=== PATIENT | male | born 1960 | race Caucasian/White ===

== ENCOUNTER 2018-09-11 14:23 | Inpatient (IN) | payer OTHER ==
[2018-09-11] MEDS: SOD CHLORIDE 0.9% 1,000 ML IV (14:54)
[2018-09-11] MEDS: morphine 4 MG/ML VIAL IV (14:54)
[2018-09-11] MEDS: ONDANSETRON 4 MG INJ IV (14:54)
[2018-09-11 14:55] LABS: ADD MAN DIFF? NO
[2018-09-11 15:00] LABS: WHITE BLOOD COUNT 9.2 10^3/ul (4.8-10.8)
[2018-09-11 15:00] LABS: BASOPHILS % 0.2 % (0.0-2.0); HEMATOCRIT 43.8 % (42.0-52.0); HEMOGLOBIN 15.3 g/dl (14.0-18.0); LYMPHOCYTES # 0.8 10^3/ul (0.8-2.9); LYMPHOCYTES % 8.5 % (15.0-51.0); MEAN CORPUSCULAR HEMOGLOBIN 29.5 pg (29.0-33.0); MEAN CORPUSCULAR HGB CONC 34.9 g/dl (32.0-37.0); MEAN CORPUSCULAR VOLUME 84.4 fl (82.0-101.0); MEAN PLATELET VOLUME 9.1 fl (7.4-10.4); MONOCYTE # 0.6 10^3/ul (0.3-0.9); MONOCYTES % 6.5 % (0.0-11.0); NEUTROPHIL # 7.8 10^3/ul (1.6-7.5); NEUTROPHILS % 84.3 % (39.0-77.0); PLATELET COUNT 225 10^3/UL (140-415); RED BLOOD COUNT 5.19 10^6/ul (4.70-6.10); RED CELL DISTRIBUTION WIDTH 12.6 % (11.5-14.5)
[2018-09-11 15:05] LABS: ADD UMIC YES; UR ASCORBIC ACID NEGATIVE (NEGATIVE); UR BILIRUBIN (Dip) NEGATIVE (NEGATIVE); UR BLOOD (Dip) 1+ mg/dL (NEGATIVE); UR CLARITY SLIGHTLY CLOUDY (CLEAR); UR COLOR YELLOW (YELLOW); UR GLUCOSE (Dip) NEGATIVE (NEGATIVE); UR KETONES (Dip) 1+ mg/dL (NEGATIVE); UR LEUKOCYTE ESTERASE (Dip) NEGATIVE Leu/ul (NEGATIVE); UR MUCUS MODERATE /HPF (NONE SEEN); UR NITRITE (Dip) NEGATIVE (NEGATIVE); UR RBC 22 /HPF (0-5); UR SPECIFIC GRAVITY (Dip) 1.021 (1.003-1.030); UR TOTAL PROTEIN (Dip) NEGATIVE (NEGATIVE); UR UROBILINOGEN (Dip) 1+ mg/dL (NEGATIVE); UR WBC 1 /HPF (0-5)
[2018-09-11 15:17] LABS: ANION GAP 12 (5-13); BLOOD UREA NITROGEN 19 mg/dl (7-20); CALCIUM 8.5 mg/dl (8.4-10.2); CARBON DIOXIDE 28 mmol/L (21-31); CHLORIDE 96 mmol/L (97-110); CHOL/HDL RATIO 3.3 RATIO; CHOLESTEROL 121 mg/dl (100-200); CREATININE 1.08 mg/dl (0.61-1.24); Estimated GFR > 60 mL/min (>60); GLUCOSE 161 mg/dl (70-220); HDL CHOLESTEROL 36 mg/dl (28-71); LDL CHOLESTEROL,CALCULATED 74 mg/dl; POTASSIUM 3.1 mmol/L (3.5-5.1); SODIUM 136 mmol/L (135-144); TRIGLYCERIDES 54 mg/dl (0-149)
[2018-09-11 15:21] LABS: INR 0.99; PARTIAL THROMBOPLASTIN TIME 27.6 Sec (23.0-35.0); PROTIME 13.2 Sec (11.9-14.9)
[2018-09-11 15:23] LABS: HEMOGLOBIN A1C 5.5 % (0-5.9)
[2018-09-11 15:29] LABS: TROPONIN-I < 0.012 ng/ml (0.000-0.120)
[2018-09-11 15:43] LABS: AMPHETAMINE/METHAMPHETAMINE Negative (NEGATIVE); BARBITURATES Negative (NEGATIVE); BENZODIAZEPINES Negative (NEGATIVE); CANNABINOIDS Negative (NEGATIVE); COCAINE Negative (NEGATIVE); OPIATES Negative (NEGATIVE)
[2018-09-11 15:46] LABS: ETHANOL < 10.0 mg/dl (0-0)
[2018-09-11] MEDS: ASPIRIN 81 MG TAB PO (16:23)
[2018-09-11] MEDS ORDERED: ONDANSETRON 4 MG INJ IV (17:00)
[2018-09-11] MEDS ORDERED: ACETAMINOPHEN 325 MG TAB PO (17:00)
[2018-09-11] MEDS: POTASSIUM CHLORIDE (SR) 20 MEQ TAB PO ×2 (17:17→22:57)
[2018-09-11] MEDS ORDERED: NITROGLYCERIN (SL) 0.4 MG TAB SL (18:00)
[2018-09-11] MEDS ORDERED: ALBUTEROL/IPRATROPIUM (NEB) 3 ML AMP HHN (18:00)
[2018-09-11] MEDS ORDERED: hydrALAzine 20 MG INJ IV (18:00)
[2018-09-11] MEDS ORDERED: DOCUSATE SODIUM 100 MG CAP PO (18:00)
[2018-09-11] MEDS ORDERED: MAGNESIUM HYDROXIDE 30ML CUP PO (18:00)
[2018-09-11] MEDS ORDERED: LORAZEPAM 2 MG INJ IV (18:00)
[2018-09-11] MEDS ORDERED: NACL 0.9% 3 ML SYG IV (18:00)
[2018-09-11] MEDS ORDERED: morphine 2 MG INJ IV (18:00)
[2018-09-11 19:05] LABS: FREE T4 (FREE THYROXINE) 2.68 ng/dl (0.64-1.79)
[2018-09-11] MEDS: ATORVASTATIN 80 MG TAB PO (20:23)
[2018-09-11] MEDS: SOD CHLORIDE 0.45% 1,000 ML IV (20:23)
[2018-09-11] MEDS: HEPARIN 5,000 UNIT/1 ML VIAL SC (20:30)
[2018-09-11] MEDS: ACETAMINOPHEN 325 MG TAB PO (20:35)
[2018-09-11] MEDS: IBUPROFEN 600 MG TAB PO (22:57)
[2018-09-12] MEDS: PANTOPRAZOLE (EC) 40 MG TAB PO (06:26)
[2018-09-12 06:39] LABS: ADD MAN DIFF? NO
[2018-09-12 06:43] LABS: WHITE BLOOD COUNT 5.8 10^3/ul (4.8-10.8)
[2018-09-12 06:43] LABS: BASOPHILS % 0.3 % (0.0-2.0); EOSINOPHILS % 0.7 % (0.0-7.0); HEMATOCRIT 40.1 % (42.0-52.0); HEMOGLOBIN 13.5 g/dl (14.0-18.0); LYMPHOCYTES # 0.8 10^3/ul (0.8-2.9); LYMPHOCYTES % 12.9 % (15.0-51.0); MEAN CORPUSCULAR HEMOGLOBIN 29.4 pg (29.0-33.0); MEAN CORPUSCULAR HGB CONC 33.7 g/dl (32.0-37.0); MEAN CORPUSCULAR VOLUME 87.4 fl (82.0-101.0); MEAN PLATELET VOLUME 9.5 fl (7.4-10.4); MONOCYTE # 0.6 10^3/ul (0.3-0.9); MONOCYTES % 9.8 % (0.0-11.0); NEUTROPHIL # 4.4 10^3/ul (1.6-7.5); PLATELET COUNT 174 10^3/UL (140-415); RED BLOOD COUNT 4.59 10^6/ul (4.70-6.10); RED CELL DISTRIBUTION WIDTH 13.1 % (11.5-14.5)
[2018-09-12 06:56] LABS: ANION GAP 9 (5-13); BLOOD UREA NITROGEN 21 mg/dl (7-20); CALCIUM 7.6 mg/dl (8.4-10.2); CARBON DIOXIDE 30 mmol/L (21-31); CHLORIDE 100 mmol/L (97-110); Estimated GFR > 60 mL/min (>60); GLUCOSE 107 mg/dl (70-220); MAGNESIUM 2.1 mg/dl (1.7-2.5); PHOSPHORUS 4.9 mg/dl (2.5-4.9); POTASSIUM 3.5 mmol/L (3.5-5.1); SODIUM 139 mmol/L (135-144)
[2018-09-12 06:59] LABS: ADD UMIC YES; UR ASCORBIC ACID NEGATIVE (NEGATIVE); UR BILIRUBIN (Dip) NEGATIVE (NEGATIVE); UR BLOOD (Dip) 1+ mg/dL (NEGATIVE); UR CLARITY CLEAR (CLEAR); UR COLOR YELLOW (YELLOW); UR GLUCOSE (Dip) NEGATIVE (NEGATIVE); UR KETONES (Dip) NEGATIVE (NEGATIVE); UR LEUKOCYTE ESTERASE (Dip) NEGATIVE Leu/ul (NEGATIVE); UR MUCUS FEW /HPF (NONE SEEN); UR NITRITE (Dip) NEGATIVE (NEGATIVE); UR RBC 6 /HPF (0-5); UR SPECIFIC GRAVITY (Dip) 1.011 (1.003-1.030); UR TOTAL PROTEIN (Dip) NEGATIVE (NEGATIVE); UR UROBILINOGEN (Dip) 1+ mg/dL (NEGATIVE); UR WBC 0 /HPF (0-5)
[2018-09-12] MEDS: LEVOTHYROXINE 175 MCG TAB PO (07:00)
[2018-09-12 07:10] LABS: CHOL/HDL RATIO 3.1 RATIO; HDL CHOLESTEROL 30 mg/dl (28-71); LDL CHOLESTEROL,CALCULATED 46 mg/dl; TRIGLYCERIDES 91 mg/dl (0-149)
[2018-09-12 07:10] LABS: CHOLESTEROL 94 mg/dl (100-200)
[2018-09-12] MEDS: SOD CHLORIDE 0.45% 1,000 ML IV ×3 (07:16→23:06)
[2018-09-12 07:34] LABS: HEMOGLOBIN A1C 5.5 % (0-5.9)
[2018-09-12 08:40] LABS: THYROID STIMULATING HORMONE < 0.015 MIU/L (0.465-4.680)
[2018-09-12] MEDS: CALCITRIOL 0.25 MCG CAP PO (09:51)
[2018-09-12] MEDS: CHLORTHALIDONE 25 MG TAB PO (09:52)
[2018-09-12] MEDS: ASPIRIN (EC) 325 MG TAB PO (09:52)
[2018-09-12] MEDS: HEPARIN 5,000 UNIT/1 ML VIAL SC ×2 (10:43→20:38)
[2018-09-12] MEDS: ACETAMINOPHEN 325 MG TAB PO ×3 (14:40→22:16)
[2018-09-12] MEDS: HYDROCODONE/APAP (5/325) TAB PO (16:02)
[2018-09-12] MEDS: ATORVASTATIN 80 MG TAB PO (20:33)
[2018-09-12] MEDS: CEFTRIAXONE 1 GM/50 ML (PMX) 50 ML IVPB (22:17)
[2018-09-13] MEDS ORDERED: VANCOMYCIN IV PER PHARMACY XX (01:00)
[2018-09-13] MEDS: VANCOMYCIN HCL 1.5 GM in SOD CHLORIDE 0.9% 250 ML IVPB (03:08)
[2018-09-13] MEDS: PANTOPRAZOLE (EC) 40 MG TAB PO (05:21)
[2018-09-13] MEDS: LEVOTHYROXINE 150 MCG TAB PO (05:22)
[2018-09-13] MEDS: ACETAMINOPHEN 325 MG TAB PO ×3 (05:22→17:57)
[2018-09-13 06:22] LABS: ADD MAN DIFF? NO
[2018-09-13 06:27] LABS: BASOPHILS % 0.3 % (0.0-2.0); EOSINOPHILS % 0.2 % (0.0-7.0); HEMATOCRIT 41.9 % (42.0-52.0); HEMOGLOBIN 14.3 g/dl (14.0-18.0); LYMPHOCYTES % 15.9 % (15.0-51.0); MEAN CORPUSCULAR HEMOGLOBIN 29.2 pg (29.0-33.0); MEAN CORPUSCULAR HGB CONC 34.1 g/dl (32.0-37.0); MEAN CORPUSCULAR VOLUME 85.7 fl (82.0-101.0); MEAN PLATELET VOLUME 9.4 fl (7.4-10.4); MONOCYTE # 0.5 10^3/ul (0.3-0.9); MONOCYTES % 7.9 % (0.0-11.0); NEUTROPHIL # 4.5 10^3/ul (1.6-7.5); NEUTROPHILS % 75.4 % (39.0-77.0); PLATELET COUNT 179 10^3/UL (140-415); RED BLOOD COUNT 4.89 10^6/ul (4.70-6.10); RED CELL DISTRIBUTION WIDTH 12.9 % (11.5-14.5)
[2018-09-13 06:56] LABS: ANION GAP 11 (5-13); BLOOD UREA NITROGEN 16 mg/dl (7-20); CALCIUM 7.4 mg/dl (8.4-10.2); CARBON DIOXIDE 32 mmol/L (21-31); CHLORIDE 97 mmol/L (97-110); CREATININE 1.07 mg/dl (0.61-1.24); Estimated GFR > 60 mL/min (>60); GLUCOSE 109 mg/dl (70-220); POTASSIUM 3.1 mmol/L (3.5-5.1); SODIUM 140 mmol/L (135-144)
[2018-09-13] MEDS ORDERED: LEVOTHYROXINE 175 MCG TAB PO (07:00)
[2018-09-13] MEDS: CALCITRIOL 0.25 MCG CAP PO (10:43)
[2018-09-13] MEDS: POTASSIUM CHLORIDE 20 MEQ POWDER FOR ORAL SOLN PO (10:43)
[2018-09-13] MEDS: ASPIRIN (EC) 325 MG TAB PO (10:44)
[2018-09-13] MEDS: SOD CHLORIDE 0.45% 1,000 ML IV ×2 (10:44→21:05)
[2018-09-13] MEDS: CHLORTHALIDONE 25 MG TAB PO (10:44)
[2018-09-13] MEDS: HEPARIN 5,000 UNIT/1 ML VIAL SC ×2 (10:50→21:02)
[2018-09-13] MEDS: ONDANSETRON 4 MG INJ IV (12:05)
[2018-09-13] MEDS ORDERED: VANCOMYCIN 750 MG (PMX) 250 ML IVPB (15:00)
[2018-09-13] MEDS: VANCOMYCIN 1 GM 250 ML IVPB (16:06)
[2018-09-13 17:08] LABS: AMPHETAMINE/METHAMPHETAMINE Negative (NEGATIVE); BARBITURATES Negative (NEGATIVE); BENZODIAZEPINES Negative (NEGATIVE); CANNABINOIDS Negative (NEGATIVE); COCAINE Negative (NEGATIVE); OPIATES Negative (NEGATIVE)
[2018-09-13] MEDS: ATORVASTATIN 80 MG TAB PO (20:57)
[2018-09-13] MEDS: IBUPROFEN 400 MG TAB PO (21:04)
[2018-09-13] MEDS: CEFTRIAXONE 1 GM/50 ML (PMX) 50 ML IVPB (22:16)
[2018-09-14] MEDS: VANCOMYCIN 1 GM 250 ML IVPB ×2 (03:14→15:29)
[2018-09-14] MEDS: IBUPROFEN 400 MG TAB PO ×3 (04:55→21:21)
[2018-09-14] MEDS: PANTOPRAZOLE (EC) 40 MG TAB PO (06:25)
[2018-09-14] MEDS: LEVOTHYROXINE 150 MCG TAB PO (06:25)
[2018-09-14 07:49] LABS: ADD MAN DIFF? NO
[2018-09-14 07:55] LABS: WHITE BLOOD COUNT 4.3 10^3/ul (4.8-10.8)
[2018-09-14 07:55] LABS: BASOPHILS % 0.5 % (0.0-2.0); LYMPHOCYTES # 0.7 10^3/ul (0.8-2.9); LYMPHOCYTES % 15.7 % (15.0-51.0); MEAN CORPUSCULAR HGB CONC 34.2 g/dl (32.0-37.0); MEAN CORPUSCULAR VOLUME 84.6 fl (82.0-101.0); MEAN PLATELET VOLUME 9.4 fl (7.4-10.4); MONOCYTE # 0.3 10^3/ul (0.3-0.9); MONOCYTES % 6.2 % (0.0-11.0); NEUTROPHIL # 3.3 10^3/ul (1.6-7.5); NEUTROPHILS % 77.1 % (39.0-77.0); PLATELET COUNT 167 10^3/UL (140-415); RED BLOOD COUNT 4.49 10^6/ul (4.70-6.10); RED CELL DISTRIBUTION WIDTH 12.9 % (11.5-14.5)
[2018-09-14 08:13] LABS: ANION GAP 13 (5-13); BLOOD UREA NITROGEN 16 mg/dl (7-20); CALCIUM 6.9 mg/dl (8.4-10.2); CARBON DIOXIDE 32 mmol/L (21-31); CHLORIDE 96 mmol/L (97-110); CREATININE 1.13 mg/dl (0.61-1.24); Estimated GFR > 60 mL/min (>60); GLUCOSE 103 mg/dl (70-220); SODIUM 141 mmol/L (135-144)
[2018-09-14 08:19] LABS: POTASSIUM 2.9 mmol/L (3.5-5.1)
[2018-09-14] MEDS: CALCITRIOL 0.25 MCG CAP PO (08:56)
[2018-09-14] MEDS: ASPIRIN (EC) 325 MG TAB PO (08:57)
[2018-09-14] MEDS: CHLORTHALIDONE 25 MG TAB PO (08:57)
[2018-09-14] MEDS: HEPARIN 5,000 UNIT/1 ML VIAL SC ×2 (09:04→21:31)
[2018-09-14] MEDS: POTASSIUM CHLORIDE 100 ML IVPB (10:35)
[2018-09-14] MEDS: POTASSIUM CHLORIDE 20 MEQ POWDER FOR ORAL SOLN PO (10:36)
[2018-09-14 12:25] LABS: HIV 1&2 ANTIBODY NEGATIVE (NEGATIVE)
[2018-09-14] MEDS: CEFTRIAXONE 1 GM/50 ML (PMX) 50 ML IVPB (13:06)
[2018-09-14] MEDS: SOD CHLORIDE 0.45% 1,000 ML IV (13:09)
[2018-09-14 13:45] LABS: C-REACTIVE PROTEIN 34.5 mg/dl (0.0-0.9)
[2018-09-14 13:55] LABS: HIV 1&2 ANTIBODY NEGATIVE (NEGATIVE)
[2018-09-14 15:15] LABS: VANCOMYCIN,TROUGH 6.8 ug/ml (10.0-20.0)
[2018-09-14 16:13] LABS: RAPID PLASMA REAGIN NONREACTIVE (NR)
[2018-09-14] MEDS: LIDOCAINE 1% (MPF) 5 ML VIAL (16:56)
[2018-09-14] MEDS: ACETAMINOPHEN 325 MG TAB PO (18:10)
[2018-09-14 20:30] LABS: CSF RBC 0 /uL (0-0); CSF WBC 4 /cmm (0-10)
[2018-09-14 20:32] LABS: CSF RBC 0 /uL (0-0); CSF WBC 5 /cmm (0-10)
[2018-09-14 20:37] LABS: CSF COLOR COLORLESS
[2018-09-14 20:37] LABS: CSF CLARITY CLEAR; CSF COLOR COLORLESS; CSF#TUBE COUNT TUBE#1; CSF#TUBE COUNT TUBE#4; CSF#TUBES REC'D 4
[2018-09-14] MEDS: ATORVASTATIN 80 MG TAB PO (21:21)
[2018-09-14] MEDS: MEROPENEM 1 GM/50ML(PMX) 50 ML IVPB (21:25)
[2018-09-14 22:06] LABS: GLUCOSE,CSF 64 mg/dl (50-80)
[2018-09-14 22:06] LABS: TOTAL PROTEIN,CSF 96 mg/dl (12-60)
[2018-09-14] MEDS: VANCOMYCIN HCL 1.5 GM in SOD CHLORIDE 0.9% 250 ML IVPB (23:59)
[2018-09-15] MEDS: SOD CHLORIDE 0.45% 1,000 ML IV ×3 (01:44→15:04)
[2018-09-15] MEDS: MEROPENEM 1 GM/50ML(PMX) 50 ML IVPB ×3 (05:42→21:38)
[2018-09-15] MEDS: LEVOTHYROXINE 150 MCG TAB PO (05:42)
[2018-09-15] MEDS: PANTOPRAZOLE (EC) 40 MG TAB PO (05:42)
[2018-09-15 06:40] LABS: ADD MAN DIFF? NO
[2018-09-15 06:59] LABS: BASOPHILS % 0.2 % (0.0-2.0); HEMATOCRIT 37.8 % (42.0-52.0); HEMOGLOBIN 12.8 g/dl (14.0-18.0); LYMPHOCYTES # 0.8 10^3/ul (0.8-2.9); LYMPHOCYTES % 14.9 % (15.0-51.0); MEAN CORPUSCULAR HEMOGLOBIN 29.3 pg (29.0-33.0); MEAN CORPUSCULAR HGB CONC 33.9 g/dl (32.0-37.0); MEAN CORPUSCULAR VOLUME 86.5 fl (82.0-101.0); MEAN PLATELET VOLUME 9.5 fl (7.4-10.4); MONOCYTE # 0.4 10^3/ul (0.3-0.9); MONOCYTES % 7.3 % (0.0-11.0); NEUTROPHIL # 3.9 10^3/ul (1.6-7.5); NEUTROPHILS % 77.2 % (39.0-77.0); PLATELET COUNT 189 10^3/UL (140-415); RED BLOOD COUNT 4.37 10^6/ul (4.70-6.10); RED CELL DISTRIBUTION WIDTH 12.9 % (11.5-14.5)
[2018-09-15 06:59] LABS: WHITE BLOOD COUNT 5.1 10^3/ul (4.8-10.8)
[2018-09-15 07:16] LABS: ANION GAP 11 (5-13); BLOOD UREA NITROGEN 14 mg/dl (7-20); CARBON DIOXIDE 31 mmol/L (21-31); CHLORIDE 99 mmol/L (97-110); CREATININE 1.08 mg/dl (0.61-1.24); Estimated GFR > 60 mL/min (>60); GLUCOSE 104 mg/dl (70-220); POTASSIUM 3.3 mmol/L (3.5-5.1); SODIUM 141 mmol/L (135-144)
[2018-09-15] MEDS: ASPIRIN (EC) 325 MG TAB PO (08:50)
[2018-09-15] MEDS: CHLORTHALIDONE 25 MG TAB PO (08:50)
[2018-09-15] MEDS: OSELTAMIVIR 75 MG CAP PO (08:50)
[2018-09-15] MEDS: CALCITRIOL 0.25 MCG CAP PO (08:50)
[2018-09-15] MEDS: HEPARIN 5,000 UNIT/1 ML VIAL SC (08:57)
[2018-09-15] MEDS: POTASSIUM CHLORIDE 20 MEQ POWDER FOR ORAL SOLN PO ×2 (10:01→16:39)
[2018-09-15] MEDS: IBUPROFEN 400 MG TAB PO ×2 (10:27→21:38)
[2018-09-15] MEDS: VANCOMYCIN HCL 1.5 GM in SOD CHLORIDE 0.9% 250 ML IVPB (12:15)
[2018-09-15] MEDS ORDERED: POTASSIUM CHLORIDE 100 ML IVPB (16:00)
[2018-09-15 17:06] LABS: CREATINE KINASE 229 IU/L (23-200)
[2018-09-15] MEDS: BARIUM SULF 2% 450 ML BTL (BERRY SMOOTHIE) PO (17:49)
[2018-09-15] MEDS: ONDANSETRON 4 MG INJ IV (19:49)
[2018-09-15] MEDS ORDERED: BARIUM SULFATE 135 ML (E-Z HD) PO (20:30)
[2018-09-15] MEDS: DOXYCYCLINE 100 MG TAB PO (21:37)
[2018-09-15] MEDS: ATORVASTATIN 80 MG TAB PO (21:38)
[2018-09-15] MEDS: ENOXAPARIN 40 MG/0.4 ML SYG SC (21:55)
[2018-09-16] MEDS: VANCOMYCIN HCL 1.5 GM in SOD CHLORIDE 0.9% 250 ML IVPB ×2 (01:16→13:07)
[2018-09-16] MEDS: BARIUM SULF 2% 450 ML BTL (BERRY SMOOTHIE) PO ×2 (01:50→01:54)
[2018-09-16] MEDS: SOD CHLORIDE 0.45% 1,000 ML IV ×2 (04:24→10:40)
[2018-09-16] MEDS: LEVOTHYROXINE 150 MCG TAB PO (06:07)
[2018-09-16] MEDS: PANTOPRAZOLE (EC) 40 MG TAB PO (06:07)
[2018-09-16] MEDS: MEROPENEM 1 GM/50ML(PMX) 50 ML IVPB ×3 (06:08→21:34)
[2018-09-16 06:17] LABS: ADD MAN DIFF? NO; HAAIG REFLEX REFLEX FILED
[2018-09-16 06:26] LABS: WHITE BLOOD COUNT 5.2 10^3/ul (4.8-10.8)
[2018-09-16 06:26] LABS: BASOPHILS % 0.2 % (0.0-2.0); EOSINOPHILS % 0.6 % (0.0-7.0); HEMATOCRIT 36.9 % (42.0-52.0); HEMOGLOBIN 12.6 g/dl (14.0-18.0); LYMPHOCYTES # 0.9 10^3/ul (0.8-2.9); LYMPHOCYTES % 17.1 % (15.0-51.0); MEAN CORPUSCULAR HGB CONC 34.1 g/dl (32.0-37.0); MEAN CORPUSCULAR VOLUME 84.8 fl (82.0-101.0); MEAN PLATELET VOLUME 9.3 fl (7.4-10.4); MONOCYTE # 0.5 10^3/ul (0.3-0.9); MONOCYTES % 9.4 % (0.0-11.0); NEUTROPHIL # 3.8 10^3/ul (1.6-7.5); NEUTROPHILS % 72.3 % (39.0-77.0); PLATELET COUNT 198 10^3/UL (140-415); RED BLOOD COUNT 4.35 10^6/ul (4.70-6.10)
[2018-09-16 06:37] LABS: ANION GAP 12 (5-13); BLOOD UREA NITROGEN 15 mg/dl (7-20); CALCIUM 6.7 mg/dl (8.4-10.2); CARBON DIOXIDE 27 mmol/L (21-31); CHLORIDE 101 mmol/L (97-110); CREATININE 0.99 mg/dl (0.61-1.24); Estimated GFR > 60 mL/min (>60); GLUCOSE 110 mg/dl (70-220); POTASSIUM 3.4 mmol/L (3.5-5.1); SODIUM 140 mmol/L (135-144)
[2018-09-16 06:52] LABS: ALANINE AMINOTRANSFERASE 46 IU/L (13-69); ALBUMIN 3.3 g/dl (3.3-4.9); ALKALINE PHOSPHATASE 60 IU/L (42-121); ASPARTATE AMINO TRANSFERASE 54 IU/L (15-46); BILIRUBIN,INDIRECT 0.3 mg/dl (0-1.1); BILIRUBIN,TOTAL 0.3 mg/dl (0.2-1.3); MAGNESIUM 1.8 mg/dl (1.7-2.5); TOTAL PROTEIN 6.4 g/dl (6.1-8.1)
[2018-09-16 07:22] LABS: HEPATITIS B SURFACE ANTIGEN NEGATIVE (NEGATIVE)
[2018-09-16 07:40] LABS: HEPATITIS B CORE ANTIBODY NEGATIVE (NEGATIVE); HEPATITIS C VIRAL ANTIBODY NEGATIVE (NEGATIVE)
[2018-09-16] MEDS: OSELTAMIVIR 75 MG CAP PO (08:29)
[2018-09-16] MEDS: ASPIRIN (EC) 325 MG TAB PO (08:29)
[2018-09-16] MEDS: DOXYCYCLINE 100 MG TAB PO ×2 (08:29→21:33)
[2018-09-16] MEDS: CHLORTHALIDONE 25 MG TAB PO (08:29)
[2018-09-16] MEDS: CALCITRIOL 0.5 MCG CAPSULE PO (10:39)
[2018-09-16] MEDS: CALCIUM GLUCONATE 10% 2 GM in DEXTROSE 5% 100 ML IVPB (16:43)
[2018-09-16 17:08] LABS: FREE THYROXINE INDEX (Calc) 4.47 ug/ml (0.65-3.89); T3 UPTAKE 41.4 % (23.5-40.5); T4 (THYROXINE) 10.8 ug/dl (5.5-11.0)
[2018-09-16 17:23] LABS: THYROID STIMULATING HORMONE < 0.015 MIU/L (0.465-4.680)
[2018-09-16] MEDS: CALCIUM CARBONATE 500 MG CHEW TAB PO (18:22)
[2018-09-16 18:41] LABS: HERPES SIMPLEX 1 DNA NOT DETECTED; HERPES SIMPLEX 2 DNA NOT DETECTED; HERPES SIMPLEX PCR SOURCE CEREBROSPINAL FLUID
[2018-09-16] MEDS: ATORVASTATIN 80 MG TAB PO (21:33)
[2018-09-16] MEDS: CHOLESTYRAMINE 4 GM PACKET PO (21:33)
[2018-09-16] MEDS: DEXAMETHASONE 2 MG TAB PO (21:34)
[2018-09-16] MEDS: ENOXAPARIN 40 MG/0.4 ML SYG SC (23:33)
[2018-09-16 23:44] LABS: VANCOMYCIN,TROUGH 13.9 ug/ml (10.0-20.0)
[2018-09-17] MEDS: VANCOMYCIN HCL 1.5 GM in SOD CHLORIDE 0.9% 250 ML IVPB ×2 (00:46→12:26)
[2018-09-17] MEDS: PANTOPRAZOLE (EC) 40 MG TAB PO (05:35)
[2018-09-17] MEDS: LEVOTHYROXINE 100 MCG TAB PO (05:35)
[2018-09-17] MEDS: LEVOTHYROXINE 150 MCG TAB PO (05:36)
[2018-09-17] MEDS: MEROPENEM 1 GM/50ML(PMX) 50 ML IVPB ×2 (05:39→14:00)
[2018-09-17 07:03] LABS: ADD MAN DIFF? NO
[2018-09-17] MEDS: SOD CHLORIDE 0.45% 1,000 ML IV ×2 (07:04→19:13)
[2018-09-17 07:15] LABS: BASOPHILS % 0.3 % (0.0-2.0); EOSINOPHILS % 0.3 % (0.0-7.0); HEMATOCRIT 38.7 % (42.0-52.0); HEMOGLOBIN 13.1 g/dl (14.0-18.0); LYMPHOCYTES # 0.7 10^3/ul (0.8-2.9); LYMPHOCYTES % 17.8 % (15.0-51.0); MEAN CORPUSCULAR HEMOGLOBIN 29.2 pg (29.0-33.0); MEAN CORPUSCULAR HGB CONC 33.9 g/dl (32.0-37.0); MEAN CORPUSCULAR VOLUME 86.2 fl (82.0-101.0); MEAN PLATELET VOLUME 9.5 fl (7.4-10.4); MONOCYTE # 0.3 10^3/ul (0.3-0.9); MONOCYTES % 6.5 % (0.0-11.0); NEUTROPHILS % 74.6 % (39.0-77.0); PLATELET COUNT 259 10^3/UL (140-415); RED BLOOD COUNT 4.49 10^6/ul (4.70-6.10); RED CELL DISTRIBUTION WIDTH 13.2 % (11.5-14.5)
[2018-09-17 07:33] LABS: ANION GAP 12 (5-13); BLOOD UREA NITROGEN 17 mg/dl (7-20); CALCIUM 7.5 mg/dl (8.4-10.2); CARBON DIOXIDE 30 mmol/L (21-31); CHLORIDE 99 mmol/L (97-110); CREATININE 0.97 mg/dl (0.61-1.24); Estimated GFR > 60 mL/min (>60); GLUCOSE 126 mg/dl (70-220); POTASSIUM 3.9 mmol/L (3.5-5.1); SODIUM 141 mmol/L (135-144)
[2018-09-17] MEDS: DEXAMETHASONE 2 MG TAB PO ×2 (08:51→12:31)
[2018-09-17] MEDS: DOXYCYCLINE 100 MG TAB PO ×2 (08:51→21:27)
[2018-09-17] MEDS: CALCIUM CARBONATE 500 MG CHEW TAB PO ×3 (08:51→19:12)
[2018-09-17] MEDS: ASPIRIN (EC) 325 MG TAB PO (08:51)
[2018-09-17] MEDS: CHOLESTYRAMINE 4 GM PACKET PO ×3 (08:51→21:26)
[2018-09-17] MEDS: CALCITRIOL 0.5 MCG CAPSULE PO (08:51)
[2018-09-17] MEDS: OSELTAMIVIR 75 MG CAP PO (08:52)
[2018-09-17] MEDS: CHLORTHALIDONE 25 MG TAB PO (08:54)
[2018-09-17 13:20] LABS: PROCALCITONIN 0.32 ng/mL (<0.10)
[2018-09-17] MEDS: ATORVASTATIN 80 MG TAB PO (21:26)
[2018-09-17] MEDS: ENOXAPARIN 40 MG/0.4 ML SYG SC (21:59)
[2018-09-18 06:54] LABS: ADD MAN DIFF? NO
[2018-09-18 06:56] LABS: BASOPHILS % 0.3 % (0.0-2.0); EOSINOPHILS % 0.3 % (0.0-7.0); HEMATOCRIT 37.8 % (42.0-52.0); HEMOGLOBIN 12.9 g/dl (14.0-18.0); LYMPHOCYTES # 1.2 10^3/ul (0.8-2.9); LYMPHOCYTES % 16.6 % (15.0-51.0); MEAN CORPUSCULAR HEMOGLOBIN 29.4 pg (29.0-33.0); MEAN CORPUSCULAR HGB CONC 34.1 g/dl (32.0-37.0); MEAN CORPUSCULAR VOLUME 86.1 fl (82.0-101.0); MEAN PLATELET VOLUME 9.2 fl (7.4-10.4); MONOCYTE # 0.5 10^3/ul (0.3-0.9); MONOCYTES % 6.5 % (0.0-11.0); NEUTROPHIL # 5.6 10^3/ul (1.6-7.5); NEUTROPHILS % 75.6 % (39.0-77.0); PLATELET COUNT 328 10^3/UL (140-415); RED BLOOD COUNT 4.39 10^6/ul (4.70-6.10); RED CELL DISTRIBUTION WIDTH 13.1 % (11.5-14.5)
[2018-09-18 06:56] LABS: WHITE BLOOD COUNT 7.4 10^3/ul (4.8-10.8)
[2018-09-18] MEDS: PANTOPRAZOLE (EC) 40 MG TAB PO (07:11)
[2018-09-18] MEDS: LEVOTHYROXINE 150 MCG TAB PO (07:11)
[2018-09-18] MEDS: LEVOTHYROXINE 100 MCG TAB PO (07:11)
[2018-09-18 07:19] LABS: ANION GAP 11 (5-13); BLOOD UREA NITROGEN 19 mg/dl (7-20); CALCIUM 7.2 mg/dl (8.4-10.2); CARBON DIOXIDE 28 mmol/L (21-31); CHLORIDE 103 mmol/L (97-110); Estimated GFR > 60 mL/min (>60); GLUCOSE 123 mg/dl (70-220); POTASSIUM 3.9 mmol/L (3.5-5.1); SODIUM 142 mmol/L (135-144)
[2018-09-18] MEDS: CALCIUM CARBONATE 500 MG CHEW TAB PO ×2 (08:31→12:16)
[2018-09-18] MEDS: ASPIRIN (EC) 325 MG TAB PO (08:31)
[2018-09-18] MEDS: CHLORTHALIDONE 25 MG TAB PO (08:32)
[2018-09-18] MEDS: CHOLESTYRAMINE 4 GM PACKET PO ×2 (08:32→12:16)
[2018-09-18] MEDS: DOXYCYCLINE 100 MG TAB PO (08:32)
[2018-09-18] MEDS: OSELTAMIVIR 75 MG CAP PO (08:33)
[2018-09-18] MEDS: CALCITRIOL 0.5 MCG CAPSULE PO (08:37)
[2018-09-18] MEDS: SOD CHLORIDE 0.45% 1,000 ML IV (08:38)
[2018-09-18 13:21] LABS: NIL 0.33 IU/mL; QUANTIFERON(R)-TB GOLD NEGATIVE (NEGATIVE); TB-NIL 0.07 IU/mL
== END 2018-09-18 17:50 | disposition home or self-care (01) | DRG 643 ==
LOC: E/R 14:23 → TEL 16:33
PROC: 009U3ZX Drainage of Spinal Canal, Percutaneous Approach, Diagnostic (ICD-10-PCS; principal; 2018-09-14)
PROC: B01BZZZ Fluoroscopy of Spinal Cord (ICD-10-PCS; 2018-09-14)
DX: E05.40 Thyrotoxicosis factitia without thyrotoxic crisis or storm (principal); J18.9 Pneumonia, unspecified organism; G45.9 Transient cerebral ischemic attack, unspecified; A70 Chlamydia psittaci infections; R56.9 Unspecified convulsions; I10 Essential (primary) hypertension; E89.0 Postprocedural hypothyroidism; E89.2 Postprocedural hypoparathyroidism; Z79.82 Long term (current) use of aspirin; Z85.850 Personal history of malignant neoplasm of thyroid; Z87.891 Personal history of nicotine dependence
CPT/HCPCS: 36415; 70450; 70551; 70552; 71045; 71250; 72125; 74176; 80048; 80061; 80076; 80202; 80307; 81001; 82550; 82945; 83036; 83735; 84100; 84145; 84157; 84436; 84439; 84443; 84479; 84484; 85025; 85610; 85730; 86140; 86403; 86480; 86592; 86631; 86635; 86641; 86698; 86703; 86704; 86709; 86788; 86789; 86803; 87040; 87070; 87075; 87077; 87086; 87102; 87207; 87275; 87276; 87279; 87280; 87340; 87400; 87529; 87536; 89051; 90686; 92523; 92610; 93005; 93306; 93880; 95819; 96374; 96375; 97116; 97161; 97167; 97530; 99285-25; G0378